=== PATIENT | female | born 1995 | race Hispanic/Latino ===

== ENCOUNTER 2016-08-30 07:33 | Emergency (ER) | payer OTHER ==
[~2016-08-30] VITALS: Ht 162.6 cm; Wt 84.1 kg
[~2016-08-30 07:33] MED LIST: CYCL5TAB PO
[2016-08-30 07:38] VITALS: BP 134/90; PULSE 121; RESP 12; O2SAT 100
--- NOTE | 2016-08-30 07:40 | ED.REPORT ---
HPI-Psychiatric Illness Date of Service Aug 30, 2016 ED Provider: Ananth Thomas MD The patient is a 21 year old female with history of alcohol and drug abuse, who presents to the emergency department accompanied by her AA sponsor. The patient has experienced worsening depression, insomnia, decreased appetite, and suicidal ideation. She does not have a plan to kill or harm herself. The patient reports recent stressors. She failed school last quarter, started a new job, and is also experiencing family issues. She denies homicidal ideation, visual hallucinations or auditory hallucinations. She reports history of attempted suicide in the past. The patient states she tried to hang herself but stopped after thinking of her brother. She has also tried to overdose on trazodone. She has history of alcohol abuse and drug abuse. She reports previously taking anything she can get, including marijuana and Percocet. She has been sober for 18 months. She does smoke tobacco. She has not been prescribed depression medication in the past. She has an appointment with a mental health provider in 6 weeks and does not feel like she can wait that long. She is here today seeking voluntary psychiatric hospitalization. She complains of back pain, shoulder pain, abdominal pain, and a dry cough. She denies fever, chills, productive cough, vomiting or diarrhea. Nursing Notes Stated Complaint: MENTAL HEALTH Chief Complaint: Psychiatric Complaint Nursing Notes Reviewed: Yes Allergies: Coded Allergies: No Known Allergies (Unverified , 11/16/15) Scheduled PRN Cyclobenzaprine (Cyclobenzaprine) 5 Mg Tablet 5 MG PO TID PRN PRN Spasm General Time Seen by MD: 07:39 Chief Complaint Depressed, Suicidal ideation Hx Obtained From: Patient Arrived By: Walk-in Onset Occurred: More than a week ago... Symptom Duration: Since onset Progression Since Onset: Gradually worsening Severity: Current: No pain currently Severity: Maximum: No pain Recent Healthcare: No recent hospitalization Similar Sx Previous: Yes Risk-Psychiatric Illness Suicide Risk Stratification Suicide Risk Factors - Adult: : Previous attemptNo: Alcohol use, Substance abuse RF Statements: Risk factors reviewed Past Medical History Past Medical History Denies Past Surgical History Denies Family History Noncontributory Social History The patient states she would previously use anything she could get a hold of, such as percocet and marijuana. She has been sober for 18 months. Alcohol Use: In recovery Drug Use: In recovery Other Social History: Good social support, Local resident Ambulatory Status Independent Review of Systems Constitutional: Denies: Chills, Fever Respiratory: Reports: Non-productive cough, Denies: Prod cough, bloody, Prod cough, brown, Prod cough, clear, Prod cough , green, Prod cough, white, Prod cough, yellow GI: Reports: Abdominal pain, Denies: Diarrhea, Vomiting Psychiatric: Reports: Depression, Insomnia, Stress, Suicidal ideation, Unable to control self, Denies: Hallucinations, auditory, Hallucinations, visual, Homicidal ideation Complete sys rev & neg: except as marked. Musculoskeletal: Reports: Back pain, Joint pain Physical Exam Initial Vital Signs Vital Signs (First) Date Time Temp Pulse Resp B/P Pulse Ox O2 Delivery O2 Flow Rate FiO2 08/30/16 07:38 36.3 121 12 134/90 100 Initial VS: Reviewed Head / Eyes: Atraumatic, Normocephalic, PERRL ENT: Mucous membranes moist, Conjunctiva normal, No scleral icterus Neck: Supple, Non-tender, Full range of motion Respiratory: Breath sounds normal, Clear to auscultation, No respiratory distress Cardiovascular: Regular rate & rhythm, Heart sounds normal, Intact distal pulses Abdomen / GI: Soft, Non-tender, No guarding, No rebound, No distention Lymphatic: No lymphadenopathy Extremities: Vascular intact, Neuro intact, No swelling, No tenderness Skin: Warm, Dry, No cyanosis General/Constitutional: Awake, Alert, No acute distress, Cooperative Neurologic: Oriented X3, Speech NL, No motor deficits, No sensory deficits, Cerebellar NL, Memory NL Psychiatric: Not homicidal, No hallucinations, Cognitive function NL, Judgment/ insight NL Abnormal Mood/Affect: Positive: Depressed, Flat affect Abnormal Thinking / Perception: Positive: Suicidal, no plan Interpretation & Diagnostics Interpretation & Diagnostics: Urine : negative Urine drug screen: negative Breathalyzer: 0 Lab Results Interpretation Result Diagram: 08/30/16 0830 08/30/16 0830 Test 08/30/16 08:30 White Blood Count 6.8th/mm3 (3.8-10.1) Red Blood Count 4.88mil/mm3 (3.90-5.20) Hemoglobin 14.4g/dL (12.0-15.6) Hematocrit 42.5% (35.0-46.0) Mean Corpuscular Volume 87.1fL (81-100) Mean Corpuscular Hemoglobin 29.5pg (27.0-35.0) Mean Corpuscular Hemoglobin Concent 33.9% (32.0-37.0) Red Cell Distribution Width 12.2% (12.3-15.4) Platelet Count 176bil/L (150-400) Neutrophils (%) (Auto) 67.2% (40-74) Lymphocytes (%) (Auto) 26.6% (14-46) Monocytes (%) (Auto) 5.3% (4-12) Eosinophils (%) (Auto) 0.4% (0-5) Basophils (%) (Auto) 0.4% (0-3) Sodium Level 138mEq/L (134-144) Potassium Level 4.4mEq/L (3.5-5.2) Chloride Level 101mEq/L (97-108) Carbon Dioxide Level 22mmol/L (18-29) Blood Urea Nitrogen 8mg/dL (6-20) Creatinine 0.49mg/dL (0.57-1.00) Estimat Glomerular Filtration Rate 228mL/min (>59) Glucose Level 99mg/dL (60-99) Calcium Level 9.8mg/dL (8.5-10.1) Total Bilirubin 0.4mg/dL (0.0-1.2) Aspartate Amino Transf (AST/SGOT) 13U/L (0-50) Alanine Aminotransferase (ALT/SGPT) 14U/L (0-32) Alkaline Phosphatase 61U/L (25-150) Total Protein 7.9g/dL (6.4-8.4) Albumin 4.6g/dL (3.4-5.0) Thyroid Stimulating Hormone (TSH) 1.140uIU/mL (0.450-4.500) Re-Eval/Medical Decision Med Decision/Clinical Course I was moderately concerned about this woman's risk for suicide. After social work contact the initial plan had been to admit her to the hospital but is in his the process was in motion to make this happen, the patient had second thoughts about that and decided she wanted to go home with outpatient follow- up. SHEILA Lovelace, is making arrangements for outpatient follow-up in the coming days. She will call the patient at home and let her know what those specific arrangements are. The patient does contract for safety. Source of Hx: Old records, Friend (AA sponser) Re-Evaluation/Progress : Time of Eval: 08:01 Re-Evaluation/Progress Note: Discussed plan for social work consult. Discussed requirements for voluntary hospitalization. Consultation #1: Consulted With: tangled yarn worker Call Returned at: 09:38 Electrical Accessories Assembler: Will see patient Consultation #2: Consulted With: tangled yarn worker Call Returned at: 10:42 Note: The ED social science teacher feels like she is a good candidate for voluntary inpatient psychiatric admission. Consultation #3: Consulted With: tangled yarn worker Call Returned at: 12:32 Note: The patient is no longer wanting to be admitting. The social science teacher will try to move her mental health appointment up to a sooner date. The patient is requesting something to help her sleep. Counseled Regarding: Diagnosis, Lab results, Need for follow-up, When/why to return to ED Discharge & Departure Impression: Primary Impression: Acute situational disturbance Additional Impression: Depression )( Condition at Discharge: No danger to self, No danger to others, No suicidal ideation, No homicidal ideation Disposition: Home Discharge Condition All VS Reviewed: Yes Condition: Stable Patient Instructions: Major Depression (DC) Additional Instructions: Thank you for entrusting us with your care today. The social science teacher will be arranging close outpatient follow-up and will call you with a specific time later today. It is important that you make it to this appointment. Use trazodone as needed for sleep. Return to the emergency department if your symptoms are worse, if you are suicidal, or for any other new or concerning symptoms. You can also call the crisis line at Referrals: NOPCP (PCP) Scribe Attestation Portions of this note were transcribed by Cecilia Cooper. I, Dr. Thomas personally performed the history, physical exam and medical decision-making; I reviewed and confirmed the accuracy of the information in the transcribed note. Signed by: Seth Bundy, 08/30/2016 at 12:42. Ananth Thomas MD Aug 30, 2016 07:40 Cecilia Cooper Aug 30, 2016 08:01
[2016-08-30 08:40] LABS: BASOPHILS % (AUTO) 0.4 % (0-3); EOSINOPHILS % (AUTO) 0.4 % (0-5); MONOCYTES % (AUTO) 5.3 % (4-12); Mean Corpuscular Hemoglobin 29.5 pg (27.0-35.0); Mean Corpuscular Volume 87.1 fL (81-100); NEUTROPHILS % (AUTO) 67.2 % (40-74); Platelet Count 176 bil/L (150-400)
[2016-08-30] MEDS ORDERED: TRAZ-118 PO (12:45)
[2016-08-30 14:31] VITALS: BP_SYST 109; PULSE 75; O2SAT 98
== END 2016-08-30 13:30 | disposition home or self-care (01) ==
LOC: SED 07:33
DX: F43.0 Acute stress reaction (principal); F32.9 Major depressive disorder, single episode, unspecified

== ENCOUNTER 2016-11-15 21:59 | Inpatient (IN) | payer MEDICAID, OTHER ==
[~2016-11-15] VITALS: Ht 162.6 cm; Wt 77.3 kg
[~2016-11-15 21:59] MED LIST changes: +TRAZ-118 PO
[2016-11-15 22:04] VITALS: BP 122/74; PULSE 72; RESP 21; O2SAT 98
[2016-11-15 23:27] LABS: BASOPHILS % (AUTO) 0.3 % (0-3); EOSINOPHILS % (AUTO) 0.5 % (0-5); MONOCYTES % (AUTO) 5.5 % (4-12); Mean Corpuscular Hemoglobin 28.7 pg (27.0-35.0); Mean Corpuscular Volume 87.6 fL (81-100); NEUTROPHILS % (AUTO) 66.7 % (40-74); Platelet Count 151 bil/L (150-400)
--- NOTE | 2016-11-15 23:28 | ED.REPORT ---
HPI-Psychiatric Illness Date of Service Nov 15, 2016 ED Provider: Mathew Sinha MD Patient is a 21 year old female with a hx of depression and PTSD who presents to the ED in care of sponsor s/p her roommate walked in on her with a sheet tied around her neck this evening. When asked if she was trying to kill herself , she states "I said I was tying the sheet around my neck. I just don't feel like living." She reports that she has done similar things previously but has not tried other methods of harming herself. She denies homicidal ideations, hallucinations, or any other symptoms. She denies alcohol or drug use. She is not currently on any medications. Nursing Notes Stated Complaint: SUICIDAL Chief Complaint: Psychiatric Complaint Nursing Notes Reviewed: Yes Allergies: Coded Allergies: No Known Allergies (Unverified , 11/15/16) Scheduled PRN Cyclobenzaprine (Cyclobenzaprine) 5 Mg Tablet 5 MG PO TID PRN PRN Spasm Trazodone (Trazodone) 100 Mg Tablet 50-200 MG PO HS PRN PRN For Insomnia General Time Seen by MD: 23:22 Chief Complaint Suicidal attempt Hx Obtained From: Patient Arrived By: Walk-in Similar Sx Previous: Yes Risk-Psychiatric Illness Suicide Risk Stratification Suicide Risk Factors - Adult: : Previous attemptNo: Alcohol use RF Statements: Risk factors reviewed Past Medical History Past Medical History Depression, PTSD Past Surgical History Denies Family History Noncontributory Social History The patient states she would previously use anything she could get a hold of, such as percocet and marijuana. She has been sober for 18 months. Alcohol Use: In recovery Drug Use: In recovery Other Social History: Good social support, Local resident Ambulatory Status Independent Review of Systems Psychiatric: Reports: Depression, Suicidal ideation, Denies: Hallucinations, auditory, Hallucinations, visual, Homicidal ideation Complete sys rev & neg: except as marked. Physical Exam Initial Vital Signs Vital Signs (First) Date Time Temp Pulse Resp B/P Pulse Ox O2 Delivery O2 Flow Rate FiO2 11/15/16 22:04 37.0 72 21 122/74 98 Room Air Initial VS: Reviewed, Vital signs normal Head / Eyes: Atraumatic, Normocephalic Neck: Full range of motion Respiratory: No respiratory distress Cardiovascular: Regular rate & rhythm Abdomen / GI: Soft, Non-tender Skin: Warm, Dry General/Constitutional: Awake, Alert, Well developed Neurologic: Oriented X3, Speech NL Psychiatric: Not homicidal Abnormal Mood/Affect: Positive: Flat affect Abnormal Thinking / Perception: Positive: Suicidal, with plan Alert and interactive Interpretation & Diagnostics Lab Results Interpretation Result Diagram: 11/15/16232111/15/162321 Test 11/15/16 23:22 11/15/16 23:24 White Blood Count 7.5th/mm3 (3.8-10.1) Red Blood Count 4.50mil/mm3 (3.90-5.20) Hemoglobin 12.9g/dL (12.0-15.6) Hematocrit 39.4% (35.0-46.0) Mean Corpuscular Volume 87.6fL (81-100) Mean Corpuscular Hemoglobin 28.7pg (27.0-35.0) Mean Corpuscular Hemoglobin Concent 32.7% (32.0-37.0) Red Cell Distribution Width 12.6% (12.3-15.4) Platelet Count 151bil/L (150-400) Neutrophils (%) (Auto) 66.7% (40-74) Lymphocytes (%) (Auto) 26.9% (14-46) Monocytes (%) (Auto) 5.5% (4-12) Eosinophils (%) (Auto) 0.5% (0-5) Basophils (%) (Auto) 0.3% (0-3) Sodium Level 142mEq/L (134-144) Potassium Level 3.8mEq/L (3.5-5.2) Chloride Level 105mEq/L (97-108) Carbon Dioxide Level 22mmol/L (18-29) Blood Urea Nitrogen 13mg/dL (6-20) Creatinine 0.52mg/dL (0.57-1.00) Estimat Glomerular Filtration Rate 213mL/min (>59) Glucose Level 93mg/dL (60-99) Calcium Level 9.2mg/dL (8.5-10.1) Total Bilirubin 0.2mg/dL (0.0-1.2) Aspartate Amino Transf (AST/SGOT) 8U/L (0-50) Alanine Aminotransferase (ALT/SGPT) 10U/L (0-32) Alkaline Phosphatase 62U/L (25-150) Total Protein 6.9g/dL (6.4-8.4) Albumin 4.4g/dL (3.4-5.0) Thyroid Stimulating Hormone (TSH) 0.826uIU/mL (0.450-4.500) Hold Barnett Top Tube Received (Received) Re-Eval/Medical Decision Med Decision/Clinical Course 21-year-old female history of depression and PTSD presenting after suicide attempt with hanging. She was found by her roommate with a sheet around her neck. She reports she does not want to live anymore. She does not want to be here. Transferred care to Dr. Martinez at shift change. Re-Evaluation/Progress : Time of Eval: 00:11 Re-Evaluation/Progress Note: Discussed plan to stay in ED for evaluation in the morning. Patient understands and agrees with plan. All questions addressed at this time. Counseled Regarding: Diagnosis Discharge & Departure Shift Change Sign-Out Patient Care Transferred: Yes Discussed Complaint(s): Yes Laboratory Evaluation: Ordered, not yet done Additonal Information: Transfer of care to Dr. Martinez at 0300 Impression: Primary Impression: Depression Depression Type: unspecified Qualified Code: F32.9 - Major depressive disorder, single episode, unspecified Additional Impression: Suicide attempt )( Condition at Discharge: No danger to others Referrals: NOPCP (PCP) Care Transferred to: Transfer of care to Dr. Martinez Care Transferred at: 03:00 Scribe Attestation Portions of this note were transcribed by Lilly Malagon. I, Dr. Sinha personally performed the history, physical exam and medical decision-making; I reviewed and confirmed the accuracy of the information in the transcribed note. Signed by: Lilly Malagon 11/16/16, 0121 Mathew Sinha MD Nov 15, 2016 23:28 LILLY MALAGON Nov 15, 2016 23:35
[2016-11-16] MEDS ORDERED: LORazepam 1 mg Tablet PO ONE ×2 (02:10→16:20)
[2016-11-16 07:07] VITALS: BP 104/50; O2SAT 100
[2016-11-16 16:30] VITALS: BP 114/79; PULSE 75; RESP 18; O2SAT 99
[2016-11-16 18:08] VITALS: BP 114/79; PULSE 75; RESP 18; O2SAT 99
[2016-11-16 22:03] VITALS: BP 107/71; PULSE 86; RESP 18
[2016-11-16] MEDS ORDERED: LORazepam 1 mg Tablet PO PRN (22:15)
[2016-11-16] MEDS ORDERED: Magnesium Hydroxide 10 mL Oral Concentration PO PRN (22:15)
[2016-11-16] MEDS ORDERED: Benzocaine-Menthol Lozenge 2/Pkg PO PRN (22:15)
[2016-11-16] MEDS ORDERED: Alum-Mag Hydrox-Simeth 30 mL Suspension PO PRN (22:15)
--- NOTE | 2016-11-16 22:33 | NUR ---
ADMIT NOTE Pt arrived on the mental health unit at 1810 form [facility] ED in a wheelchair. Pt presented to ED accompanied by her AA sponsor. Pt's roommate at [facility] had found her with a sheet tied around her neck. Pt reports that she had been wrapping a sheet around her neck each night for several nights, contemplating killing herself. Pt reports that she was ambivalent about carrying out the suicide attempt when her roommate discovered her. Pt has a history of depression, PTSD, and polysubstance abuse (alcohol, opiates, THC, and "whatever I can get my hands on"), with 18 months of sobriety. Pt reports history of two prior suicide attempts: overdose on trazodone at age [age] and hanging at age 17; family history of suicide (uncle and cousin); and history of self-harm (cutting between ages 13 and 14). Pt visited [facility] ED in August with SI at which time she was connected with [facility] in [place] and indicated that she did not follow through with their providers's treatment recommendations. Pt reports that she does not currently have a PCP or psychiatric provider. Pt denies depression and anxiety, noting "I just had a lorazepam one hour ago." Denies SI, stating "I changed the way I'm thinking after talking with my sponsor." Denies HI. Denies KARLOS BISHOP.
--- NOTE | 2016-11-17 05:46 | NUR ---
Nursing Note Supervisor Frame Assembly 7pm to 7am Pt oriented to unit after arriving on floor just prior to start of shift. Pleasant calm and cooperative, thoughts organized and linear, denies SI. Pt given Ambien 5mg with sleep meds. Pt went to sleep at 0000 and woke up at 0600. Slept a total of 6 hours. Monitored pt. with q 15 minute face checks for safety location and accountability.
[2016-11-17 10:00] VITALS: BP 98/60; PULSE 91; RESP 16
[2016-11-17] MEDS ORDERED: Benzocaine-Menthol Lozenge 2/Pkg PO PRN (14:00)
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
--- NOTE | 2016-11-17 15:20 | NUR ---
W[employer]/Counselor S:"I'm just really scared." O: Patient did not report any SI or HI, no AVH, no anxiety and no depression. A: Patient stated that she felt scared, and is hoping for a discharge tomorrow. She was pleasant and calm, but very quiet and had to be asked to speak up. Stated she wasn't sure what to say and expressed some social anxiety. Patient was out on the patio. P:Follow care plan and coordinate with outpatient providers.
--- NOTE | 2016-11-17 18:16 | NUR ---
Nursing Dayshift Note S: " I just want to stay out of my room so I wont sleep all day " O: patient out in the milieu, and in the dining room for meals, interacting with other patients appropriately. Pt is cooperative and pleasant with care and medication compliant. A: Pt appears well groomed, pt is very quiet with her speech. Her thoughts are organized and linear. Pt denies any SI/HI. Pt rates her depression at a 8/10, and her anxiety at a 3/10. Pt states that she needs to get her shit together. She states she wants to be a drug and ETOH counselor, but she wants to take care of herself first. P: Follow plan of care, monitor behaviors. Monitor for side effects of medications.
[2016-11-17] MEDS: hydrOXYzine Pamoate 25 mg Capsule PO PRN (21:12)
--- NOTE | 2016-11-18 03:24 | NUR ---
Nursing, [facility] shift Patient in her room at beginning of shift; participated in evening group. Poor eye contact, difficulty w/ engaging in conversation. Guarded and anxious; with flat affect. Appears to be committed to working on her sobriety program (AA). She declined ativan and ambien at HS, opting instead for vistaril and motrin. Slept well thru the [facility], emerging one time to request a blanket and returned to her room to sleep. CTM for changes.
[2016-11-18 09:50] VITALS: BP 126/85; PULSE 113; RESP 18
--- NOTE | 2016-11-18 14:55 | NUR ---
Nursing Dayshift: S: "Do you have the safety plan sheet?" O: Patient future focused wanting to ready herself for discharge. Generally latent responses during interaction. Also discussed dropping out of college this last quarter. Given safety plan sheets to work on. Eating well at meals. Some interaction with staff and peers. Anxiety and depression both a 5/10. Denies harmful thoughts and hallucinations. A: Solemn. Latent speech. P: CPOC. Monitor mood and behavior.
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
--- NOTE | 2016-11-18 19:03 | NUR ---
Observations [id number] Pt appears very timid, shy, and unsure. When asked how she was doing, pt stated " I just need to get out of here." Pt had phone call from a friend who wanted to visit, pt stated to this senior medical writer that she didn't want anyone knowing that she is here. Pt kept to her room much of the day, wondering unit, quiet. Pt did attend all meals, eating 75%. Pt did attend meeting and unit activities. Pt was observed every 15 minutes of shift as directed.
--- NOTE | 2016-11-18 23:44 | NUR ---
Observations 1900 to 0700 Pt attended and participated in wrap up group. Pt ate a snack. Pt isolates to room and is only mildly social with peers. Pts affect appears sad, lonely and internally focused. Pt maintained behavioral control and showed no signs of abnormal behavior. Pt appeared asleep at 2300 and has remained asleep. Pt respirations were observed when asleep. Staff completed 15 min close observations as ordered.
--- NOTE | 2016-11-19 06:19 | NUR ---
Night note [id number] Pt alert and responsive;Pt did not have any bizarre behavioral issues. Pt participated in wrap up group with peers and appeared to be interacting well. pt did not turn in Safety Plan sheets at this time and slept for 6hrs without s/sx of distress. Continue to monitor for mood changes, emotional well being, and q15min checks for safety. Care continues.
[2016-11-19 08:00] VITALS: BP 105/70; PULSE 65; RESP 16
[2016-11-19] MEDS: hydrOXYzine Pamoate 25 mg Capsule PO PRN ×2 (11:24→21:13)
--- NOTE | 2016-11-19 13:13 | NUR ---
NURS NOTE DAYSHIFT Mood: Endorses "some" depression, anxiety 10/20. Affect: Anxious. Tearful, at times. Behavior: Pt up in common areas much of the morning, working on her safety plan. Thought Content/Process: "I just really want to go home. I was just impulsive the other day." Linear. Denies SI. PRN/NURS Notes: Pt spoke with roommate who encouraged her to stay on the unit another day. Pt continues Hydroxyzine 50 mg at 1124 for anxiety.
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
--- NOTE | 2016-11-19 15:44 | NUR ---
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 A: Patient planned to d/c today, but after speaking with roommate, decided to stay another night. Patient has already been set up with follow up appts at [facility] in [facility] for 11/20/16. She stated that she did not get much sleep last night and feels very stressed about leaving. Patient has been out on the milieu and has interacted with other patients as well as participated in art projects. P: Follow care plan and coordinate with outpatient providers.
--- NOTE | 2016-11-19 17:39 | NUR ---
Shift note 3P-7P Pt. states she feels bored and tired. Denies anxiety, depression, thoughts of harm to self or others, or hallucinations. Has been resting in her room this afternoon.
--- NOTE | 2016-11-19 23:55 | NUR ---
NOC OBS Pt attended group and noted enjoying the music. Out on unit most of evening. Mood positive, interaction appropriate. Asleep at 2300. Observed Q15 as ordered.
[2016-11-20 07:53] VITALS: BP 113/74; PULSE 97; RESP 18
--- NOTE | 2016-11-20 11:55 | NUR ---
Business Teacher/Counselor S:"I'm just feeling overwhelmed." O: Patient denies any SI or HI, no AVH, and stated that her anxiety and depression were low so far. A: Patient is being discharged today. She has been scheduled for follow up appts. at [facility] for today, 1pm with her PCP and 3PM with her Counselor. Patient will return to her previous living situation at [facility]. Patient will be provided with all necessary discharge papers including safety plan, prescriptions, crisis line number etc. P: Follow discharge instructions.
[2016-11-20] MEDS ORDERED: SERT50TA9 PO (12:03)
--- NOTE | 2016-11-20 12:04 | PCM.DIMED ---
Discharge Instructions Date of Service Nov 20, 2016 Dates of Hospitalization Nov 16, 2016 at 17:47 Discharge Diagnosis Discharge Diagnosis [place] I. 1. Major depressive disorder. 2. History of polysubstance abuse. [place] II. None. [place] III. None. [place] IV. Moderate. [place] V. Current Global Assessment of Functioning equal to 45 Medication Instructions Additional med instructions I Strongly encouraged patient to follow up with outpatient care: 1-Recommended patient takes medication as prescribed and not alter this unless under the direct care of a provider. 2-Recommend client refrain from recreational drugs and alcohol while taking psychiatric medications. 3--Recommend patient attempt to find a therapist or group to deal with impulse control and interpersonal relationship conflicts Diet Discharge Diet: No restrictions Activity Discharge Activity: No restrictions Call your provider Call your provider for: Fever or Chills Patient Instructions Follow-up plan [facility] appointment with Dr. Torres 1 PM today follow-up with [facility] counselor Destiny 3 PM today Follow-up with PCP in: 2 weeks Cosme Gutierrez MD Nov 20, 2016 12:04
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
--- NOTE | 2016-11-20 15:52 | NUR ---
Nursing: Discharge: Chirag was active on the unit before leaving. She gathered belongings. Interacted with pillowcase cutter, Olena and is aware of appointments that have been made for her. She denied any suicidal intent. Rated depression as 3/10. She admitted to anxiety as she left. Indicated she was not looking forward to returning to [facility] but states she will go there until she can work out something else. Plan was for her to go to [facility] at [place] at 1 pm and 3 pm. Left, ambulatory, accompanied by dump truck driver off [address] to go to [place] at 1230. Addendum: 11/20/16 at 1621 by SHAUNA VALVERDE RN Amended: Links added.
== END 2016-11-20 10:30 | disposition home or self-care (01) | DRG 881 ==
LOC: SED 21:59 → MHC 11-16 17:47
PROVIDERS: ADMIT Psychiatry & Neurology Psychiatry; ATTEND Nurse Practitioner
DX: F32.9 Major depressive disorder, single episode, unspecified (principal); T14.91 Suicide attempt; Z60.4 Social exclusion and rejection; Z62.810 Personal history of physical and sexual abuse in childhood; Z87.898 Personal history of other specified conditions